=== PATIENT | female | born 1960 | race American Indian/Alaskan Native ===

== ENCOUNTER 2019-02-08 08:13 | Emergency (ER) | payer BC, OTHER ==
[2019-02-08] MEDS ORDERED: TDAP Vaccine 0.5 mL Syr IM ONE (08:35)
[2019-02-08 08:41] VITALS: RESP 18; TEMP 98.2
--- NOTE | 2019-02-08 08:41 | ED PDOC ---
Arrival/HPI - General Chief Complaint: Abnormal Skin Integrity Time Seen by Provider: 02/08/19 08:18 Historian: Patient - History of Present Illness Narrative History of Present Illness (Text): 02/08/19 08:36 Patient is a 58F with no significant PMH presenting to the ED for finger injury. 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 Patient reports bleeding from the site after the injury as well as pain in the area which she rates 8/10. She denies weakness, numbness, or tingling in the area. Patient reports last tetanus shot was more than 10 years ago. She reports prior history of this injury with the delivery motorcycle driver which was repaired with cautery. Past Medical History - Psychiatric Hx Substance Use: No - Surgical History Hx Hysterectomy: Yes Other/Comment: Rhinoplasty, Ovarian cyst removal Family/Social History Family/Social History: Diabetes, Other (COPD) Smoking Status: Never Smoked Hx Alcohol Use: No Hx Substance Use: No Allergies/Home Meds Allergies/Adverse Reactions: Allergies ondansetron [From Zofran] Allergy (Verified 02/08/19 08:19) URTICARIA Home Medications: Home Meds Medication Instructions Recorded Confirmed No Known Home Med 02/08/19 02/08/19 Review of Systems - Review of Systems Constitutional: Normal. absent: Fatigue, Fevers Eyes: Normal, Vision Changes ENT: Normal Respiratory: Normal. absent: SOB Cardiovascular: Normal. absent: Chest Pain Gastrointestinal: Normal. absent: Abdominal Pain, Diarrhea, Nausea, Vomiting Genitourinary Female: Normal. absent: Dysuria Skin: Laceration Neurological: Normal. absent: Focal Weakness Psychiatric: Normal Physical Exam Vital Signs Reviewed: Yes Vital Signs Temp Pulse Resp BP Pulse Ox 02/08/19 08:16 98.2 F 79 18 133/73 98 Temperature: Afebrile Blood Pressure: Normal Pulse: Regular Respiratory Rate: Normal Appearance: Positive for: Well-Appearing Pain Distress: None Mental Status: Positive for: Alert and Oriented X 3 - Systems Exam Head: Present: Atraumatic, Normocephalic Pupils: Present: PERRL Extroacular Muscles: Present: EOMI Conjunctiva: Present: Normal Mouth: Present: Moist Mucous Membranes Neck: Present: Normal Range of Motion Respiratory/Chest: Present: Clear to Auscultation, Good Air Exchange. No: Respiratory Distress, Accessory Muscle Use, Wheezes, Rales, Rhonchi Cardiovascular: Present: Regular Rate and Rhythm, Normal S1, S2. No: Murmurs Abdomen: Present: Normal Bowel Sounds. No: Tenderness, Distention, Peritoneal Signs Upper Extremity: Present: Other (L 3rd digit anterior 2x2 cm laceration of finger pad. fascia visible. moderate amount of bleeding. ) Lower Extremity: Present: Normal Inspection. No: Edema Neurological: Present: GCS=15, CN II-XII Intact, Speech Normal, Motor Func Grossly Intact, Normal Sensory Function, Normal 2Pt Descrimination Skin: Present: Laceration. No: Rashes Psychiatric: Present: Alert, Oriented x 3, Normal Insight, Normal Concentration Medical Decision Making ED Course and Treatment: 02/08/19 08:54 Patient given Tdap. Bleeding has stopped by self-clotting. Area anesthetized with local lidocaine 1% and irrigated. No further bleeding noted. - Medication Orders Current Medication Orders: Tetanus/Reduced Diphtheria/Acell Pertussis (Boostrix Vaccine Inj) 0.5 ml IM .ONCE ONE Stop: 02/08/19 08:36 Disposition/Present on Arrival - Present on Arrival Any Indicators Present on Arrival: No History of DVT/PE: No History of Uncontrolled Diabetes: No Urinary Catheter: No History of Decub. Ulcer: No History Surgical Site Infection Following: None - Disposition Have Diagnosis and Disposition been Completed?: Yes Diagnosis: Laceration Disposition: HOME/ ROUTINE Disposition Time: 09:39 Patient Problems: Current Active Problems Problem Status Onset Laceration Acute Condition: IMPROVED Discharge Instructions (ExitCare): Wound Care (DC) Print Language: EQUATORIAL GUINEAN Additional Instructions: Clean the wound area with soap and water. Keep the area dry. Please follow up with your primary care physician for routine care. If you experience weakness, numbness, fever, chills, or nausea, please return to the emergency department. Referrals: Maverick Martinez MD [Primary Care Provider] - Follow up with primary Forms: [employer] (Khmer)
[2019-02-08] MEDS ORDERED: Oxycodone/Acetaminophen 5/325 mg Tab PO STA (08:51)
[2019-02-08 09:57] VITALS: BP 121/70; PULSE 72; O2SAT 99
== END 2019-02-08 09:57 | disposition home or self-care (01) ==
LOC: ED 08:13
DX: S61.213A Laceration without foreign body of left middle finger without damage to nail, initial encounter (principal); W31.82XA Contact with other commercial machinery, initial encounter; Y92.89 Other specified places as the place of occurrence of the external cause; Y99.0 Civilian activity done for income or pay; Z23 Encounter for immunization

== ENCOUNTER 2019-02-11 11:53 | Emergency (ER) | payer OTHER ==
[2019-02-11 12:02] VITALS: BMI 28.5
[2019-02-11] MEDS ORDERED: Absorbable Gelatin Sponge Size 12-7 MM STA (12:34)
--- NOTE | 2019-02-11 12:36 | ED PDOC ---
Arrival/HPI - General Chief Complaint: Abnormal Skin Integrity Time Seen by Provider: 02/11/19 12:09 Historian: Patient - History of Present Illness Narrative History of Present Illness (Text): 02/11/19 12:38 58 year old female, with no significant past medical history, who presents to the emergency department complaining of finger injury 3 days ago. 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 She also reports she came to the hospital 3 days ago where she had the finger wrapped. She reports she rewrapped the finger after noticing it was leaking. Patient is complaining of pain to the distal tip of the finger. Patient states she tried to follow-up with [facility]. but they told her that she had to go back to the place that took care of her originally. She denies any fevers, chills, vomiting, headache, dizziness, numbness, nausea, vomiting, chest pain, or any other complaints. PMD: Dr. Martinez Time/Duration: < week Symptom Onset: Gradual Symptom Course: Unchanged Activities at Onset: Light Context: Work Past Medical History - Provider Review Nursing Documentation Reviewed: Yes - Tetanus Immunization Tetanus Immunization: Up to Date - Psychiatric Hx Substance Use: No - Surgical History Hx Hysterectomy: Yes Other/Comment: Rhinoplasty, Ovarian cyst removal Family/Social History - Physician Review Nursing Documentation Reviewed: Yes Family/Social History: Unknown Family HX Smoking Status: Never Smoked Hx Alcohol Use: No Hx Substance Use: No Allergies/Home Meds Allergies/Adverse Reactions: Allergies ondansetron [From Zofran] Allergy (Verified 02/11/19 12:02) URTICARIA Review of Systems - Physician Review All systems were reviewed & negative as marked: Yes - Review of Systems Constitutional: absent: Fatigue, Fevers Respiratory: absent: SOB, Cough Cardiovascular: absent: Chest Pain Gastrointestinal: absent: Abdominal Pain, Diarrhea, Nausea, Vomiting Musculoskeletal: Arthralgias. absent: Back Pain, Neck Pain Skin: Laceration. absent: Cellulitis Neurological: absent: Headache, Dizziness Endocrine: absent: Diaphoresis Physical Exam Vital Signs Reviewed: Yes Temperature: Afebrile Blood Pressure: Normal Pulse: Regular Respiratory Rate: Normal Appearance: Positive for: Well-Appearing, Non-Toxic, Comfortable Pain Distress: None Mental Status: Positive for: Alert and Oriented X 3 - Systems Exam Head: Present: Atraumatic, Normocephalic Mouth: Present: Moist Mucous Membranes Neck: Present: Normal Range of Motion Respiratory/Chest: Present: Clear to Auscultation, Good Air Exchange. No: Respiratory Distress, Accessory Muscle Use Cardiovascular: Present: Regular Rate and Rhythm, Normal S1, S2. No: Murmurs Back: Present: Normal Inspection Upper Extremity: Present: Normal Inspection, Normal ROM, NORMAL PULSES, Tenderness (left 3rd finger; minimal tenderness), Swelling (minimal swelling), Neurovascularly Intact, Capillary Refill < 2s, Other (superficial avulsion to volar distal tip of left 3rd digit finger. No active bleeding.). No: Cyanosis, Erythema (no surrounding erythema) Neurological: Present: GCS=15, Speech Normal Skin: Present: Warm, Dry, Normal Color Psychiatric: Present: Alert, Oriented x 3 Medical Decision Making ED Course and Treatment: 02/11/19 12:33 58 year old female presents to the emergency department for re-evaluation of finger avulsion. Prior Visits: Notes and results from previous visits were reviewed. tetanus updated on 02/08/19 Progress Notes: pt is non toxic well appearing; no distress. stable vitals. There is a superficial skin avulsion noted to the volar distal tip of the third finger without surrounding erythema. No active bleeding. Gelfoam was applied over the avulsion site. Dressing applied. Patient was advised to keep the wound clean and dry and follow-up with a hand specialist within the next 2 days. Patient was advised me to return if symptoms worsen or persist or if new concerning symptoms develop. Patient was advised to take Tylenol every 4 hours as needed for pain and take antibiotics 4 times daily x7 days. Patient verbalizes understanding of discharge instructions and need for immediate followup. All aspects of this case were discussed the attending of record. impression; skin avulsion, wound check Keep the wound clean and dry, Keflex 1 tablet 4 times daily x7 days Tylenol every 4 hours as needed for pain Follow-up with a hand specialist within the next 2 days Follow-up with primary care physician within the next 2 days Return immediately if signs of infection develop: High fevers, increasing pain, increasing redness, increasing swelling, purulent discharge. Return immediately if any other concerning symptoms develop Reassessment Condition: Re-examined, Improved - PA / IT LEAD / Resident Statement MD/DO has reviewed & agrees with the documentation as recorded. / has examined the patient and agrees with the treatment plan. - Scribe Statement The provider has reviewed the documentation as recorded by the Lisa Emanuel Provider Scribe Attestation: All medical record entries made by the Scribe were at my direction and personally dictated by me. I have reviewed the chart and agree that the record accurately reflects my personal performance of the history, physical exam, medical decision making, and the department course for this patient. I have also personally directed, reviewed, and agree with the discharge instructions and disposition. Disposition/Present on Arrival - Present on Arrival Any Indicators Present on Arrival: No History of DVT/PE: No History of Uncontrolled Diabetes: No Urinary Catheter: No History of Decub. Ulcer: No History Surgical Site Infection Following: None - Disposition Have Diagnosis and Disposition been Completed?: Yes Diagnosis: Avulsion of skin of finger, Visit for wound check Disposition: HOME/ ROUTINE Disposition Time: 13:25 Patient Plan: Discharge Patient Problems: Current Active Problems Problem Status Onset Avulsion of skin of finger Acute Visit for wound check Acute Condition: GOOD Discharge Instructions (ExitCare): Wound Care (DC) Additional Instructions: Keep the wound clean and dry, Keflex 1 tablet 4 times daily x7 days Tylenol every 4 hours as needed for pain Follow-up with a hand specialist within the next 2 days Follow-up with primary care physician within the next 2 days Return immediately if signs of infection develop: High fevers, increasing pain, increasing redness, increasing swelling, purulent discharge. Return immediately if any other concerning symptoms develop Prescriptions: Acetaminophen [Acetaminophen Extra Strength] 500 mg PO Q4H PRN #30 tablet PRN Reason: pain/fever reduction Cephalexin [Keflex] 500 mg PO QID #28 capsule Referrals: Teagan Garcia MD [Staff Provider] - Follow up with primary Trever Rich MD [Staff Provider] - Follow up with primary Raheem Rosas III, MD [Medical Doctor] - Follow up with primary Gatito Hayes DO [Staff Provider] - Follow up with primary [facility] [Outside] - [facility] with [facility] [Outside] - Follow up with primary [facility] [place] [Outside] - Follow up with primary Forms: [employer] (Sinhala), WORK NOTE
[2019-02-11 13:20] VITALS: RESP 18; TEMP 98; O2SAT 97
[2019-02-11 13:56] VITALS: BP 138/71; PULSE 77
== END 2019-02-11 13:55 | disposition home or self-care (01) ==
LOC: ED 11:53
DX: S61.303A Unspecified open wound of left middle finger with damage to nail, initial encounter (principal); W29.8XXA Contact with other powered hand tools and household machinery, initial encounter; Y92.512 Supermarket, store or market as the place of occurrence of the external cause; Y99.0 Civilian activity done for income or pay